=== PATIENT | female | born 1935 | race Caucasian/White ===

== ENCOUNTER 2021-06-18 12:47 | Emergency (ER) | payer MEDICARE ==
[~2021-06-18] VITALS: Ht 162.6 cm; Wt 68.0 kg
--- NOTE | 2021-06-18 14:01 | EKG ---
[facility] [address] [place], [place] [address] Signed Sinus tachycardia Right bundle branch block Inferior infarct , age undetermined Abnormal ECG No previous ECGs available Confirmed by CLOTILDE GUTIÉRREZ DO ([id number]) on 06/18/2021 2:01:28 PM Electronically Signed By: CLOTILDE GUTIÉRREZ DO 06/18/21 1401 PATIENT NAME: ISHAAN BARGER Electrocardiogram DATE OF : 39 PHYSICIAN: CLOTILDE GUTIÉRREZ DO REPORT #: [id number] REPORT IS CONFIDENTIAL AND NOT TO BE RELEASED WITHOUT AUTHORIZATION
== END 2021-06-18 16:05 ==
LOC: ED 12:47
DX: A41.9 Sepsis, unspecified organism (principal); N39.0 Urinary tract infection, site not specified; R55 Syncope and collapse; Z20.822 Contact with and (suspected) exposure to COVID-19
CPT/HCPCS: 36415; 51702; 71045; 80053; 81001; 83605; 84484; 85025; 85379; 93005; 93010; 99285-25; J7030; U0003